=== PATIENT | male | born 1955 | race Caucasian/White ===

== ENCOUNTER 2022-03-08 06:44 | Outpatient (CLI) | payer MEDICARE, OTHER, SELFPAY | END 2022-03-08 06:45 | disposition home or self-care (01) | LOC: INJ CL 06:50 | PROVIDERS: PCP Family Medicine; Visit Provider Family Medicine | DX: M54.16 Radiculopathy, lumbar region (principal); M51.36 Other intervertebral disc degeneration, lumbar region | CPT/HCPCS: 62323; J0702; Q9966 ==

== ENCOUNTER 2022-05-07 06:40 | Outpatient (CLI) | payer MEDICARE, OTHER, SELFPAY | END 2022-05-07 06:41 | disposition home or self-care (01) | LOC: INJ CL 06:40 | PROVIDERS: PCP Family Medicine; Visit Provider Family Medicine | DX: M54.16 Radiculopathy, lumbar region (principal); M51.36 Other intervertebral disc degeneration, lumbar region | CPT/HCPCS: 64483; J1100; Q9966 ==

== ENCOUNTER 2023-10-28 07:19 | Outpatient (CLI) | payer MEDICARE, OTHER, SELFPAY | END 2023-10-28 07:20 | disposition home or self-care (01) | PROVIDERS: PCP Family Medicine; Visit Provider Family Medicine | DX: M54.16 Radiculopathy, lumbar region (principal); M51.36 Other intervertebral disc degeneration, lumbar region | CPT/HCPCS: 64483; J1100; Q9966 ==